=== PATIENT | male | born 1950 | race Caucasian/White ===

== ENCOUNTER 2020-05-17 10:47 | Inpatient (IN) | payer MEDICARE, OTHER ==
[~2020-05-17] VITALS: Ht 177.8 cm; Wt 111.0 kg
[2020-05-17] MEDS ORDERED: VENTOLIN HFA18 GM INH (11:02)
--- NOTE | 2020-05-17 12:48 | EKG ---
[facility] [address] [place], [place] [address] Signed Normal sinus rhythm Left axis deviation Abnormal ECG No previous ECGs available Confirmed by MINA GONZALEZ MD ([id number]) on 05/17/2020 12:48:28 PM Electronically Signed By: MINA GONZALEZ MD 05/17/20 1248 PATIENT NAME: KERVIN KOO Electrocardiogram DATE OF : 52 PHYSICIAN: MINA GOZNALEZ MD REPORT #: [id number] REPORT IS CONFIDENTIAL AND NOT TO BE RELEASED WITHOUT AUTHORIZATION
--- NOTE | 2020-05-17 15:45 | NUR ---
PATIENT ARRIVED TO THE CCU ROOM 126. PATIENT ON 2L NASAL CANNULA AND ABLE TO TRANSFER HIMSELF FROM THE STRETCH TO THE BED. PATIENT DOES REPORT WEAKNESS. PATIENTS VITALS STABLE. THIS RN IN WITH PATIENT TO ADMIT PATIENT.
[2020-05-17] MEDS ORDERED: TERBINAFINE HC250 MG PO (15:50)
--- NOTE | 2020-05-17 16:30 | NUR ---
THIS RN WITH PATIENT ROF PRIOR HOUR. PATIENT ASSESSMENT COMPELTED. UNABLE TO LISTEN TO BREATH SOUNDS D/T WEARING PAPR. PATIENTS RR- 26. SPO2 97% ON 2L NC. PATIENT REPORT HE HAS DIFFICULTIES WITH MOVING AT HOME. PATIENT STATES "I HCAN ONLY WALK ABOUT 100 FT BEFORE MY LEGS GIVE OUT ON ME BECAUSE OF THE NEUROPATHY. PATIENT ALSO REPORTS BEING WEAKER THAN NORMAL. PATIENT ARRIVES WITH HIS PERSONAL CANE. URINAL AT THE BEDSIDE AND PATIENT ABLE TO USE ON HIS OWN. PATIENTS PANTS AND ATTENDS REMOVED FOR PATIENT TO USE URINAL EASIER. PATIENT HAS A CONSTANT IRRITABLE COUGH. GAVE PRN COUGH MEDICINE. PATIENT DENIES ANY OTHER NEEDS AT THIS TIME. WILL CONTINUE TO CLSOELY MONITOR.
--- NOTE | 2020-05-17 18:45 | NUR ---
STAFF IN TO ASSIST PATIENT UP TO [facility]. 2 PERSON TRANSFER D/T PATIENT HAVING WEAKNESS. PATIENT STOOD WITH HIS AND STAFF TO THE [facility] AND TOLERATED WELL. PATIENT DID NOT HAVE A BM. PATIENT BACK TO BED AND TOELRATED WELL. PATIENT NOTED TO HAVE A LITTLE BLOOD ON HIS PENIS. PATIENT STATED "THE URINAL PINCHED IT. NO AREA SEEN WITH ANY ISSUES BUT DRIED BLODO WAS CLEANED UP. FRESH WATER AT THE BEDSIDE. CALL LIGHT IN REACH. WILL CONTINUE TO CLOSELY MONITOR.
--- NOTE | 2020-05-17 19:43 | NUR ---
REPORT RECEIVED FROM PRIYA NERI. PT IS RESTING IN BED WITH EYES CLOSED, RESP EVEN AND UNLABORED. SPO2 94%, RR 20 HR 60'S.
--- NOTE | 2020-05-17 21:15 | NUR ---
IN TO DO ASSESSMENT, PT WAKES EASILY DENIES NEEDS AT THIS TIME.
--- NOTE | 2020-05-17 22:00 | NUR ---
PT CALLS TO GET UP TO THE BSC, HAS A SMALL BM AND VOIDED. BACK TO BED, CALL LIGHT IN HAND, NO REQUESTS AND BED ALARM ON.
--- NOTE | 2020-05-18 00:45 | NUR ---
IN TO CHECK ON PT, DENIES NEEDS, BACK TO SLEEP.
--- NOTE | 2020-05-18 02:00 | NUR ---
PT CONT TO SLEEP WITH O2 IN PLACE, SPO2 98%.
--- NOTE | 2020-05-18 04:40 | NUR ---
PT SLEEPING, RESP EVEN AND UNLABORED, HR 60'S, SPO2 98% ON 2L/O2.
--- NOTE | 2020-05-18 05:25 | NUR ---
PT CALLS FOR ASSISTANCE GETTING UP TO BSC. CALL LIGHT IN HAND, WILL CALL WHEN HE IS DONE.
--- NOTE | 2020-05-18 07:30 | NUR ---
PATIENT SHIFT REPORT RECIEVED FROM TRUSS PULLER HELPER RN. PATIENT RESTING IN BED AT THIS TIME. LATONIA LIGHT IN REACH. PATIENT CALLS APPROPRIATELY. WILL CONTINUE TO CLOSELY MONITOR.
--- NOTE | 2020-05-18 09:30 | NUR ---
THIS RN IN WITH PATIENT TO DO AM ASSESSMENT, MEDICATIONS ,AND DELIEVER BREAKFAST. THIS RN IN THE ROOM FOR APPROX 1 HOUR. UNABLE TO LISTEN TO PATIENTS BREATH SOUNDS, HEART TONES, OR BOWEL TONES D/T TO WEARING PAPR UNIT AT THIS TIME. PATIENTS RR- 20-24 AT TIME. SPO2 98% ON 1L. PATIENT DENIES SOB. PATIENT REPROTS COUGH IS BETTER THAN THE PRIOR DAY. PATIENT DENIES ABD PAIN. PATIENT STATES "I FEEL BETTER ALL IN ALL". OFFERED TO GET PATIENT UP TO CHAIR AND PATIENT DENIED. OFFERED TO GET PATIENT A SHOWER AND PATIENT ALSO DENIED. PATIENT WASHED HIS FACE AND BRUSHED HIS TEETH. PATIENTS URINAL EMPTIED. NO OTHER NEEDS AT THIS TIME. WILL CONTINUE TO CLOSELY MONITOR.
--- NOTE | 2020-05-18 11:30 | NUR ---
PATIENT RESTING IN BED. PATIENTS LUNCH ORDERED. ASSESSMENT COMPLETED AND REMAINS UNCHANGED. MD MA WAS IN TO SEE PATIENT, UPDATED ON PLAN OF CARE. RT IN WITH PATIENT TO INSTRUCT ON USING THE INCENTIVE SPIROMETER AND AQAPELLA. PATIENT IS NOW COMPLETING THEM EVERY 1 HOUR. FRESH WATER PROVIDED. WILL CONTINUE TO CLOSELY MONITOR.
--- NOTE | 2020-05-18 13:00 | NUR ---
PATIENTS FOOD HERE. PATIENT ASSISTED UP IN BED. PATIENT REMAINS ON 1L NC WITH SPO2 96%. PATIENT DENIES AANY OTHER NEEDS AT THIS TIME. PATIENT HAD SOME BELONGIGNS DELIVERED AND THIS RN BROUGHT THESE INTO THE ROOM FOR HIM. ALSO, GAVE PATIENT AN EDUCATION PAPER ON REMDESIVIER PER PATIENTS REQUEST.
[2020-05-18] MEDS ORDERED: TRIAMCINOLONE A15 G1 TOP (13:47)
[2020-05-18] MEDS ORDERED: VITAMIN B-6100 MG PO (14:43)
--- NOTE | 2020-05-18 14:44 | NUR ---
Medications reconciled with pharmacy records and patient interview
--- NOTE | 2020-05-18 18:07 | NUR ---
THIS RN IN WITH PATIENT FOR PAST HOUR. PATIENT VITALS DONE, ASSESSMENT REMAINS UNCHANGED. PATIENT ATE HIS DINENR WITH NO ISSUES. MEDICATIONS GIVEN FOR HIS COUGH. SEE EMAR. PATIENT THEN ASSISTED IN TO THE BATHROOM WITH 1-PERSON STAND-BY ASSIST. PATIENT DID WELL WALKING. PATIENT DOES REPORT MILD SOB WITH ACTIVITY. PATIENT HAS GAINED SOME STRENGTH FROM YESTERDAY. CLEANED PATIENTS BACK SIDE AND PAD ON BED CHANGED. NO OTHER NEEDS AT THIS TIME. WILL CONTINUE TO CLOSELY MONITOR.
--- NOTE | 2020-05-19 00:54 | NUR ---
IN TO CHECK ON PT, AWAKENS BRIEFLY, DENIES NEEDS THEN BACK TO SLEEP. RESP EVEN AND UNLABORED ON WITH RR 20 AND SPO2 94%. HR 50.
--- NOTE | 2020-05-19 03:15 | NUR ---
PT CALLS FOR MORE WATER, ASSESSMENT DONE, NO FURTHER REQUESTS. REMAINS ON 1L/O2 WITH SPO2 96%.
--- NOTE | 2020-05-19 05:15 | NUR ---
PT CALLS TO GET UP AND USE BATHROOM. ASSISTED UP AND THEN BACK TO BED. ASSESSMENT DONE AND LABS DRAWN. TRIED PT ON ROOM AIR THIS TIME AND HE MAINTAINED SPO2 94-98%, WILL LEAVE OXYGEN OFF.
--- NOTE | 2020-05-19 08:00 | NUR ---
ASSESSMENT DONE. PATIENT DENEIS PAIN. HAS OCC HARSH NON-PRODUCTIVE COUGH. TALKED WITH PATIENT ABOUT POC FOR DAY. INDICATES UNDERSTANDING. TOOK BREAKFAST WELL. ROUTINE MEDICATIONS GIVEN.
--- NOTE | 2020-05-19 09:00 | NUR ---
UP TO BR TO VOID AND EXPELL SEMI-FORMED BROWN STOOL. SPONGE BATH GIVEN WHILE UP, THEN BACK TO BED WITH ASSIST. USING CANE WITH AMBULATION. DENEIS INCREASED SHORTNESS OF BREATH WITH EXERTION.
--- NOTE | 2020-05-19 09:50 | NUR ---
DR. MA HERE TO SEE PATIENT.
--- NOTE | 2020-05-19 10:45 | NUR ---
RESTING, DENIES PROBLEMS.
--- NOTE | 2020-05-19 12:30 | NUR ---
ASSESSMENT DONE. NO CHANGES. LUNCH GIVEN. DENIES PAIN.
--- NOTE | 2020-05-19 13:00 | NUR ---
TOOK LUNCH WELL. UP TO BR TO VOID AND EXPELL SOFT BROWN STOOL, AMBULATED TO CHAIR.
--- NOTE | 2020-05-19 14:00 | NUR ---
BACK TO BED WITH ASSIST.
--- NOTE | 2020-05-19 16:30 | NUR ---
ASSESSMENT DONE. DENEIS PROBLEMS.
--- NOTE | 2020-05-19 19:08 | NUR ---
TOOK DINNER WELL. DENIES PROBLEMS. REPORT TO NEXT SHIFT.
--- NOTE | 2020-05-19 20:20 | NUR ---
CALL LIGHT ANSWERED. PT REQUESTS FRESH ICE WATER WHICH IS PROVIDED. VSS. AFTER DEEP BREATHING SPO2 AT 98% OTHERWISE AROUND 89-91% ON RA. PT REPORTS USING INCENTIVE SPIROMETER HOURLY. NO FURTHER NEEDS AT THIS TIME.
--- NOTE | 2020-05-19 21:45 | NUR ---
SPO2 87-90 RA. APPLIED 2L PER NC. SPO2 STAYING AT 93% WITH 2L NC. WILL CONTINUE TO MONITOR.
--- NOTE | 2020-05-19 23:09 | NUR ---
CHECKED ON PT. APPEARS TO BE SLEEPING WITH EVEN UNLABORED BREATHING. SPO2 93% ON 2L NC. NO APPARENT SIGNS OF DISTRESS.
--- NOTE | 2020-05-19 23:58 | NUR ---
IN ROOM FOR VS, ASSESSMENT. PT WAS SLEEPING THIS NURSE ENTERED ROOM. VSS. 2L PER NC SP02 96%
--- NOTE | 2020-05-20 01:53 | NUR ---
pt SLEEPING WITH EVEN UNLABORED BREATHING. 2L NC WITH SPO2 97%. HR BRADYCARDIC WITH RATES 40-50BPM. NO APPARENT SIGNS OF DISTRESS. CALL LIGHT WITHIN REACH
--- NOTE | 2020-05-20 04:16 | NUR ---
CHECKED ON PT. PT CONTINUES TO SLEEP PEACEFULLY. SPO2 96-98% 2L NC. HR DEACON WITH 40-48BPM.
--- NOTE | 2020-05-20 05:21 | NUR ---
ASSESSMENT COMPLETE. LABS DRAWN. PT UP TO TOILET TO HAVE BM. 400ML DARK YELLOW URINE IN URINAL AT BEDSIDE. TITRATE PT TO 1L NC; WILL MONITOR. VSS. PT RETURNED TO BED. CALL LIGHT WITHIN REACH.
--- NOTE | 2020-05-20 07:30 | NUR ---
report recieved. PATIENT IS UP TO BR WITH ASSIST OF SENIOR DATA QUALITY ANALYST. THEN TO CHAIR FOR BREAKFAST.
--- NOTE | 2020-05-20 08:00 | NUR ---
ASSESSMENT DONE. MEDICATIONS GIVEN. READY FOR BREAKFAST. DENIES SHORTNESS OF BREATH.
--- NOTE | 2020-05-20 08:45 | NUR ---
TO BREAKFAST WELL, TO BR TO VOID, PASS FLATUS, THEN TO BED. USING CANE WHEN AMBULATING. PATIENT IS W/O C/O OR R/O.
--- NOTE | 2020-05-20 08:56 | NUR ---
CASH SHORTAGE INVESTIGATOR assisted pt. to bathroom and then to chair. Room picked up. linens changed pt. washed up. no other needs at this time. call light within reach
--- NOTE | 2020-05-20 10:00 | NUR ---
DR. MA HERE TO SEE PATIENT. TRANSFER TO MED-SURG ORDERS RECIEVED. PATIENT IN BED RESTING.
--- NOTE | 2020-05-20 10:44 | NUR ---
Attempted to call pt for assessment. I was unable to contact, called and spoke with and daughter,Henny. Henny states she lives with parents and mom had a heart attack last year and dad has been de clining. Pt has been seeing a neurologist as his legs have been giving g out. They live in a split level home and pt uses all floors. Daughter states he has had issues with his legs for 1 year. He goes up stairs on all 4. She also states he has neuropathy to his shins. They do have hand rails inside and out of the home. Daughter denies other needs, but would like an electric wc. Encouraged to speak with their pcp about this or check with [facility]. Pt plans on dc to home tomorrow, daughter will pick him up. He was released from isolation by the health department today.
--- NOTE | 2020-05-20 10:53 | NUR ---
Discussed with daughter transport to home. She will transport home tomorrow and is aware she will need to pick him up [place] the [place] end of [place] hospital near the ambulance bay. Will clarify times tomorrow.
--- NOTE | 2020-05-20 13:47 | NUR ---
PT IS UNDER PRECAUTIONS, WILL FOLLOW NEEDED
--- NOTE | 2020-05-20 14:10 | NUR ---
ON OXIMETER. CARRIER DRIVER DC'D.
--- NOTE | 2020-05-20 14:51 | NUR ---
Medications reconciled with pharmacy records and patient interview
--- NOTE | 2020-05-20 16:00 | NUR ---
IN BED RESTING. NO CHANGES.
--- NOTE | 2020-05-20 18:01 | NUR ---
sitting up in bed to eat dinner. denies problems.
--- NOTE | 2020-05-20 18:45 | NUR ---
UP TO BR TO PASS FLATUS. BACK TO BED. USES CANE. PATIENT STATES HE HAS HAD 8 FALLS OVER THE LAST 3 MONTHS. O2 AT 1 LITER APPLIED O2 SATS THIS AFTERNOON 88-90.
--- NOTE | 2020-05-20 19:05 | NUR ---
REPORT TO NEXT SHIFT.
--- NOTE | 2020-05-20 19:46 | NUR ---
REPORT RECEIVED FROM YESIKA NERI. PT SITTING UP IN BED, DENIES NEEDS AT THIS TIME.
--- NOTE | 2020-05-20 21:00 | NUR ---
PT RESTING WITH EYES CLOSED, RESP EVEN UNLABORED, SPO2 94% ON ROOM AIR.
--- NOTE | 2020-05-20 22:45 | NUR ---
IN TO DO ASSESSMENT AND CHECK ON PT, DENIES NEEDS, BACK TO SLEEP.
--- NOTE | 2020-05-21 01:55 | NUR ---
PT RESTING WITH EYES CLOSED, RESP EVEN AND UNLABORED. SPO2 98%.
--- NOTE | 2020-05-21 04:40 | NUR ---
IN TO CHECK ON PATIENT, WATER REFRESHED, NO OTHER REQUESTS AT THIS TIME. 92% ON ROOM AIR.
--- NOTE | 2020-05-21 06:00 | NUR ---
IN TO DO ASSESSMENT, PT DENIES PAIN OR SOB. UP TO BR FOR VOID AND BOWEL MOVEMENT WITH STANDBY ASSIST USING CANE. ON ROOM AIR WITH SATS BORDERLINE 89-92%. THEN BACK TO CHAIR WITH CALL LIGHT IN REACH. OXYGEN APPLIED 2L/NC.
--- NOTE | 2020-05-21 07:30 | NUR ---
report recieved. PATIENT SITTING IN CHAIR. DENIES PAIN. ROUTINE MEDICATIONS GIVEN.
--- NOTE | 2020-05-21 09:00 | NUR ---
IN BED RESTING. REMAINS ON O2 AT 1 LITER.
--- NOTE | 2020-05-21 09:41 | NUR ---
TO RA NOW, WILL CONTINUE TO MONITOR O2 SEE PATIENT NEEDS TO GO HOME ON O2.
--- NOTE | 2020-05-21 10:00 | NUR ---
Notified by Patito Sanders, Pt will dc today. O2 qualifier in process. Spoke with pt and he would like his 02 from [facility]. Called [facility] and they can deliver slightly afternoon. Received Rx from for . Will send all when note completed stating pt is i need of 02. Attempted to call daughter to update, but reach message stating "mail box has not been set up yet".
[2020-05-21] MEDS ORDERED: DEXAMETHASONE6 MG PO (10:17)
--- NOTE | 2020-05-21 10:34 | NUR ---
FORM SETTER STEEL PAN FORMS assisted pt. to bathroom then back to bed. pt. washed up, linens changed room picked up. v/s and I&Os done and recorded. No other needs at this time. call light with in reach
--- NOTE | 2020-05-21 11:00 | NUR ---
ASSISTED PATIENT WITH DRESSING. WILL BE DISCHARGED TODAY. AFTER DRESSED, TO CHAIR. DISCHARGE INSTRUCTIONS GIVEN WITH PATIENT UNDERSTANDING.
--- NOTE | 2020-05-21 11:03 | NUR ---
Pt dc summary, rx, 02 qualifier, and face sheet faxed to [facility].
--- NOTE | 2020-05-21 12:00 | NUR ---
Obtained phone number for daughter, Margie, from [facility]. Called and updated [facility] is 10 min from their house with the 02. She states they are home and will accept. [facility] will then deliver transport tank to the hospital. Margie will pick dad up at ambulance entrance when nurse call for transport.
--- NOTE | 2020-05-21 12:04 | NUR ---
PT ON PRECAUTIONS, HAS IMPROVED WELL ENOUGH TO DC HOME TODAY.
--- NOTE | 2020-05-21 12:10 | NUR ---
SITTING UP IN CHAIR EATING LUNCH. NO DISTESS NOTED.
--- NOTE | 2020-05-21 13:12 | NUR ---
TOOK LUNCH WELL, AWATING DISCHARGE RIDE.
--- NOTE | 2020-05-21 13:30 | NUR ---
DISCHARGED VIA W/C ACCOMP BY RN, PATIENT DAUGHTER HERE TO DRIVE PATIENT HOME. PATIENT IS ON O2 AT 2 L UPON DISCHARGE.
== END 2020-05-21 13:30 | disposition home or self-care (01) | DRG 177 ==
LOC: ED 10:47 → CCU 14:16
PROVIDERS: ADMIT Internal Medicine; ATTEND Internal Medicine
PROC: XW033E5 Introduction of Remdesivir Anti-infective into Peripheral Vein, Percutaneous Approach, New Technology Group 5 (ICD-10-PCS; principal; 2020-05-17)
DX: U07.1 COVID-19 (principal); J12.82 Pneumonia due to coronavirus disease 2019; J96.01 Acute respiratory failure with hypoxia; G62.9 Polyneuropathy, unspecified; Z88.5 Allergy status to narcotic agent
CPT/HCPCS: 71045; 71260; 80053; 83735; 83880; 84484; 85025; 85379; 93005; 93010; 94640; 94664; 94667; 94668; 94761; 96374; 99285-25; J1100; J1650; J2060; J7050; J8540; Q9967

== ENCOUNTER 2021-05-07 08:55 | Inpatient (IN) | payer MEDICARE, OTHER ==
[~2021-05-07] VITALS: Ht 177.8 cm; Wt 83.0 kg
[~2021-05-07 08:55] MED LIST: DEXAMETHASONE6 MG PO; IMODIUM A-1 MG/7.5 M PO; TERBINAFINE HC250 MG PO; TRIAMCINOLONE A15 G1 TOP; VENTOLIN HFA18 GM INH; VITAMIN B-6100 MG PO
--- OUTSIDE RECORDS SUMMARY | 2021-05-07 09:02 | XMS ---
PreManage Notification: KERVIN KOO Security Surveyor Rod Helper Events No recent Security Events currently on file CRITERIA MET - [facility] - 2 Visits in 30 Days CARE PROVIDERS LILIAN Cosby JR Orthopaedic Surgery: Hand Surgery Current [facility] PHONE: [phone] Monte[facility] has no Care Guidelines for this patient. [facility] VISIT COUNT (12 MO.) [address] [place] [address] TOTAL 3 NOTE: Visits indicate total known visits. ED/UCC VISIT TRACKING (12 MO.) 05/07/2021 08:55 [facility] [place] TYPE: Emergency COMPLAINT: - DIFFICULTY BREATHING 05/06/2021 18:10 [facility] [place] TYPE: Emergency COMPLAINT: - DEHYDRATION 05/17/2020 10:48 [facility] [place] TYPE: Emergency COMPLAINT: - SHORTNESS OF BREATH INPATIENT VISIT TRACKING (12 MO.) 05/17/2020 14:16 [facility] [place] TYPE: Critical Care COMPLAINT: - COVID/PNA DIAGNOSES: - Acute respiratory failure with hypoxia - Polyneuropathy, unspecified - Allergy status to narcotic agent - COVID-19 [email or web address]
--- NOTE | 2021-05-07 12:46 | NUR ---
PT ARRIVED FROM ER VIA STRECHER, PT HEAD IS DROOPED ON TO THE LEFT , PT AT BEDSIDE AND STATES THAT THIS IS NORMAL AND HE IS SLEEPING VITAL SIGNS DONE ON 4L NC, BASELINE NONVERBAL, HX OF ASL.
--- NOTE | 2021-05-07 13:00 | NUR ---
RN in room going over admission questions with , nurse doing pt assesment attmepted to wake pt up asked if he is always this hard to wake up, states this is not his baseline , pt not following commands, sternal rubbed, does not wake up, dr helton notified, rapid response initiated.
--- NOTE | 2021-05-07 13:03 | NUR ---
Rapid Response called over head at 1303, pt unresponsive to all stimuli. Initial VS at 1305 HR 87 RR 26 BP 167/88 O2 94% on 4L NC. and in room discussing w/ at bedside plan for continued care. At 1308 chest pads from crash cart placed on pt and EKG obtained, SR w/ HR 85. At 1310 two new IVs started, 20g LAC and 18g RAC, Lactic and VBG obtained, per 's order, laboratory equipment installer at bedside to collect. At 1312 RT placed pt on Bipap per , VS as follows HR 79 RR 28 BP159/78 O2 95% on Bipap 12%FiO2 and 6L. Pt remains unresponsive to all stimuli. VS at 1321 HR 88 RR 24 BP 100/66 O2 95% on Bipap 17% FiO2 and 5L. VS at 1326 HR 85 RR 20 BP 79/49 O2 96% on Bipap 17% FiO2 and 5L. At 1327 1L LR Bolus started and 1 amp Bicarb given IVP per . VS at 1330 HR 88 RR 22 BP 84/53 O2 96% on Bipap 16% FiO2 and 4L. VS at 1332 HR 81 RR 18 BP 67/44 O2 97% on Bipap 16% FiO2 and 4L. Rapid response complete at 1340 per , final VS of HR 76 RR 16 BP 69/39 O2 97% on Bipap 16%FiO2 and 4L. Pt's daughter has arrived at bedside, updated by of pt's condition. No further orders or needs a this time, RN assigned to pt remains in w/ pt's and daughter.
--- NOTE | 2021-05-07 13:10 | NUR ---
RAPID RESPONSE, BIANCA Mcbride RN MED/SURG TRAIL MAINTENANCE WORKER, ZAIN MOORE RN ELECTROLYSIST INTO ROOM, OFELIA Dan STUDENT WITH MARLIN MOHR. INTO ROOM. CHRISTIAN NERI PRIMARY RN IN ROOM, DAVID ROD RN RECORDER, [facility], [facility], [facility], JIMMY YOUNGER RN CHARGE. PT'S , AND . ALL IN ROOM FOR RAPID RESPONCE CALL.
--- NOTE | 2021-05-07 14:30 | NUR ---
HALLE GROVES INFORMED ME THAT FAMILY DID NOT WANT MY SERVICES AT THIS TIME. WILL FOLLOW NEEDED
--- NOTE | 2021-05-07 15:15 | NUR ---
RN IN ROOM TO ROUND ON PT, FAMILY TALKING TO COOLER TENDER AT THE MOMENT WILL COME BACK AROUND TO SEE.
--- NOTE | 2021-05-07 15:59 | NUR ---
Spoke pts and daughter. Pt is not responsive and is on CPAP. states pt was diagnosed with ALS recently. Were told pt would have 18 months to live. Pt with rapid decline this week. and pt had planned d on feeding tube placement. Pt was using a walker, wc, ramp and hospita bed at home. is wanting to "wait and see" if pt improves. If pt does not would like to discuss hospice. Daughter in agreement and both state pt does not want intubation or machines to keep heart going. Will follow up with family tomorrow.
--- NOTE | 2021-05-07 16:18 | NUR ---
RN AND DR BRAN IN ROOM WITH PT AND FAMILY
--- NOTE | 2021-05-07 18:34 | NUR ---
rn in room to assess pt, he has not voided since coming up to the floor bladder scan done 186 highest amount, dr helton notified per provider give 500 bolus
--- NOTE | 2021-05-07 19:16 | NUR ---
IN ROOM FOR REPORT, PT IS RESTING WITH EYES CLOSED ON BIPAP. AND DAUGHTER IN THE ROOM. THEY DENY NEEDS AT THIS TIME. CALL LIGHT IS CLOSE.
--- NOTE | 2021-05-07 20:12 | NUR ---
IN ROOM TO ADD 2ND IV PUMP TO ENSURE PT GETS MAINTANACE IV FLUID AND 500ML BOLUS ALONG WITH THE K+. ASSESSED PT, HE OPENS HIS EYES MOMENTARILY AND FALLS BACK ASLEEP. REPOSITIONED PT WITH HELP OF THA NERI AND PT BECAME MORE ALERT KEEPING HIS EYES OPENED LONGER. HIS IS AT BEDSIDE AND USING HIS WHITEBOARD TO COMMUNICATE WITH HER.
--- NOTE | 2021-05-07 21:41 | NUR ---
PATIENT PLACED ON BED BACA. PATIENT WAS ABLE TO HAVE SMALL BM. PATIENT REPOSITIONED IN BED. PATIENT IS ON 5L VIA NC. PATIENT DENIES ANY SOB. PATIENT PLACED ON CPOX ON TELE. SPOKE WITH MD ABOUT PATIENT BEING AWAKE AND ALERT. VERBAL ORDER RECEIVED TO COMPLETED SWALLOW EVAL AND TO HAVE PATIENT WEAR BIPAP MUCH POSSIBLE. SWALLOW EVAL COMPLETED. PATIENTS FAMILY PRESENT IN THE ROOM AND STATED "PATIENT IS SWALLOWING BETTER THAN HE HAS BEEN FOR 3 DAYS". PATIENT PASSED SWALLOW EVAL. PATIENT DENIES ANY SOB. BLOOD DRAWN AND SENT TO LAB. PATIENTS REMAINS IN THE ROOM. ALL QUESTIONS ANSWERED. PATIENT AND FAMILY DENY ANY FURTHER NEEDS. CALL LIGHT IN REACH.
--- NOTE | 2021-05-07 21:47 | NUR ---
PT PASSED BEDSIDE SWALLOW EVAL AND IS ON 5LNC. PROVIDED APPLESAUCE AND ENSURE PER PT'S REQUEST. IS ASSISTING PT AT THIS TIME. CALL LIGHT IS CLOSE.
--- NOTE | 2021-05-07 22:21 | NUR ---
PT STOPPED BY NURSES STATIONS, THA RN, STATED THAT PT WANTS TO BE INTUBATED, AND HAVE A TRACH IS NEEDED. PT ON BIPAP PER RT, SATS AT 100 CURRENTLY. IS LEAVING FOR THE NIGHT. DR BRAN AWARE OF PT CHANGE OF CODE STATUS, ORDERS RECEIVED. WANTS PT TO WEAR THE BIPAP MUCH HE CAN TONIGHT.
--- NOTE | 2021-05-07 23:04 | NUR ---
IN ROOM TO CHECK ON PT. HE WAS FINISHED USING THE URINAL PT TOLD SANDWICH BOARD CARRIERHALLE DODGE THAT HE HAD HEADACHE. OFFERED TYLENOL AND PT SHOOK HIS HEAD NO. READJUSTED BIPAP MASK AND LOOSENED STRAP ACROSS TOP OF HIS HEAD AND PT NODDED YE WHEN ASKED IF IT WAS BETTER. PT IS NOW RESTING WITH EYES CLOSED, RR IS EVEN AND UNLABORED. CALL LIGHT IS CLOSE, BED ALARM IS ON.
--- NOTE | 2021-05-08 00:40 | NUR ---
PT IS RESTING WITH EYES CLOSED, RR IS EVEN AND UNLABORED ON BIPAP. CALL LIGHT IS CLOSE AND BED ALARM IS ON.
--- NOTE | 2021-05-08 01:34 | NUR ---
VS AND I&O'S ENTERED, CHANGED PT'S PAD FOR SOME URINE INCONTINECE. PT OPENED EYES WHILE THIS RN IN THE ROOM BUT WENT BACK TO SLEEP. REPOSITIONED PT WITH PILLOW UNDER R HIP. CALL LIGHT IS CLOSE AND BED ALARM IS ON.
--- NOTE | 2021-05-08 03:29 | NUR ---
REPOSITIONED PT THEN HE NEEDED TP HAVE A BM, HE HAD A LITTLE INCONTINENT BM IN ATTENDS AND WENT A LITTLE MORE IN BEDPAN. ATTENDS HAD A LITTE URINE IN THEM AND PT HAD ALSO JUST USED URNINAL. PT IS NOW FLOATED WITH PILLOWS UNDER EA HIP WITH HOB ELEVATED, BIPAP IN PLACE AND PT DENIES FURTHER NEEDS. CALL LIGHT IS CLOSE, BED ALARM IS ON.
--- NOTE | 2021-05-08 03:59 | NUR ---
PT'S IV PUMP WAS BEEPING, NEW BAG OF LR NOW INFUSING. PT DID NOT WANT TO WEAR BIPAP ANYLONGER. HE IS BACK ON 5LNC. PT WANTED TO BE REPOSITIONED. PT NOW HAS PILLOWS UNDER HIS LEFT SIDE. HEEL PROTECTORS STILL IN PLACE AND PT DENIES FURTHER NEEDS. CALL LIGHT IS CLOSE, BED ALARM IS ON.
--- NOTE | 2021-05-08 06:00 | NUR ---
PT WANTED A BREAK FROM THE BIPAP AGAIN. REPOSITIONED PT WITH PILLOWS UNDER HIS R SIDE. HE DENIES FURTHER NEEDS AT THIS TIME. CALL LIGHT IS CLOSE.
--- NOTE | 2021-05-08 07:10 | NUR ---
REPORT RECIEVED FROM RECREATIONAL ASSISTANT RN, PT DOING ALOT BETTER M, WORE BIPAP AT 50% FIO2 MOST ON THE NIGHT CURRENTLY SLEEPING ON TELE #3, SINUS RHYTHM, CPOC ON, CALL LIGHT WITHIN REACH.
--- NOTE | 2021-05-08 08:00 | NUR ---
RN IN ROOM TO CHANGE TELE BATTERY, PT AWAKE REQUESTING TO TAKE BIPAP OFF. PLACED ON 4L NC 98% ON PULSE OXIMETER RESPIRATIONS REGULAR AND UNLABORED, REQUESTING TO USE THE BEDPAN.
--- NOTE | 2021-05-08 08:00 | NUR ---
PHONE CALL FORM pt'S DAUGHTER, UPDATED ON STATUS. UPDATED THAT VISITORS BACK PER POLICY. QUESTIONS ANSWERED.
--- NOTE | 2021-05-08 08:30 | NUR ---
Pt.'s oral care was done. His gums bled upon brushing with regular hospital toothbrush, so switched to oral care swabs and suctioned as needed to prevent aspiration as well. His face and hands were cleaned with washcloth. Lip chapstick and hand lotion was applied on pt. Checked if patient needed anything else prior to leaving his room with call light within reach and bed at its lowest height.
[2021-05-08] MEDS ORDERED: VITAMIN D21250 MCG PO (08:36)
[2021-05-08] MEDS ORDERED: POTASSIUM CHLO10 ME1 PO (08:36)
[2021-05-08] MEDS ORDERED: FUROSEMIDE20 MG PO (08:36)
[2021-05-08] MEDS ORDERED: TERBINAFINE HC250 MG PO (08:37)
--- NOTE | 2021-05-08 09:11 | NUR ---
PT.'S DUE LOVENOX INJECTION WAS GIVEN FOR WHICH HE COMPLIED WITH AND TOLDERATED WELL. PT. ED ON MEDICATION WAS GIVEN. MADE SURE SAFETY MEASURES WERE IN PLACE AND PT.'S OTHER NEEDS WERE MET BEFORE LEAVING ROOM.
--- NOTE | 2021-05-08 09:30 | NUR ---
Pt discussed in 829 meeting and feels pt will need a noninvasive vent for home use. Called [facility] and ALS, Resp failure, neuromuscular disease all qualify. Dr. Day will complete notes and RX. Previous charts, labs, H&P, face sheet printed and will fax to [facility] when all documentation is completed. [facility] also suggest pt may benefit from an Aflo percussion vest as he has had pneumonia in the past. In and spoke with pt. His circuit manager is in the room. I am not able to understand pts speech, but he is able to communicate with a white board and writing. Discussed Neymar vent and an aflo vest. Discussed resp failure. Pt understands, agrees to a noninvasive vent. He does not want an aflo percussion vest at this time. Denies other needs. is home resting and I will follow up with her, when she returns to the hospital.
--- NOTE | 2021-05-08 09:37 | NUR ---
PT. HAD A VISITOR (HIS [employer] COUNSEL[employer]) AND HE SEEMED TO REALLY ENJOY THE COMPANY WE WAS ALERT AND INTERACTIVE DURING VISIT. OTHER THAN SO, HIS KCL 40 MEQ AND LIDOCAINE 40 MG IN D5 500 ML WAS STARTRED AT 131 ML/HR. LEFT PT. WITH VISITOR AFTER CHECKING IF HE NEEDED ANYTHING ELSE. HIS CALL LIGHT PLACED WITHIN RECH AND BED AT ITS LOWEST HEIGHT.
--- NOTE | 2021-05-08 10:28 | NUR ---
pt REPOSITIONED WITH 2PA, pt FLOATING WITH PILLOWS UNDER EACH HIP. HEEL PROTECTORS ON. STUDENT NURSE REMAINS IN ROOM WITH pt. pt DENIES ADDITIONAL NEEDS.
--- NOTE | 2021-05-08 11:20 | NUR ---
PT. CALLED AND WAS CHECKED UP ON. PT. NEEDED AND WAS GIVEN BED PEN. HE ALSO COMPLAINED OF LIGHTHEADEDNESS (POINTED OUT OPTION ON HIS COMMUNICATION POTTS SHEET). FOR THAT, HIS SPO2 (92%-93%), BP (153/83), AND MAP (94) WAS CHECKED. HE WAS THEN WITCHED FROM NASAL CANULA TO BIPAP. HE WASN'T ABLE TO HAVE A BM, BUT HE VOIDED 200 ML CLEAR JOSE. ANOTHER L OF LR WAS HOOKED UP. HE'S UPRIGHT IN BED WITH SUPPORT OF BED AND IS CURRENTLY CLOSING HIS EYES AND JUST FOCUSING ON BREATHING. ENSURED THAT HIS CALL LIGHT WAS WITHIN REACH, TELE WAS ON AND HIS BED WAS AT ITS LOWEST HEIGHT. HIS COMPRESSION SOCKS AND PADS IN PLACE.
--- NOTE | 2021-05-08 11:33 | NUR ---
pt complaining of being lightheaded, vitals signs on pt done, bp 153/74 map of 94, heart rate of 80, pulse oximeter 98, denies pain, repositoned up in bed denies any other needs at the moment, call light within reach
--- NOTE | 2021-05-08 11:58 | NUR ---
PT CALLED OUT REQUESTING TO BE REPOSTIONED, TURNED ON L SIDE
--- NOTE | 2021-05-08 13:05 | NUR ---
PT AT BEDSIDE, UPDATED ON PTS STATUS.
--- NOTE | 2021-05-08 13:26 | NUR ---
FAMILY REQUESTED I NOT VISIT. THEIR [employer]CIAL [employer] VICE PRESIDENT WAS IN, INFORMED HALLE GONZALES TO SHARE WITH FAMILY I AM AVAILABLE IF NEEDED. SHE ACKNOWLEDGED
--- NOTE | 2021-05-08 13:38 | NUR ---
RN IN ROOM TO CHNAGE IV FLUID RATE
--- NOTE | 2021-05-08 13:47 | NUR ---
PT'S PRESENT IN ROOM. SHE EXPRESSED HER GRATITUDE TOWARDS THE STAFF'S VALUBALE WORK ESPECIALLY IN HELPING OUT WITH PT. PT STILL ON BIPAP RUNNING AT 50% AND HIS SPO2 WAS AT AT 98% WHEN CHECKED VIA PULSE OXIMETRY. ANOTHER KCL 40 MEQ+LIDOCAINE 40 MG IN D5% 500 ML WAS HOOKED UP AND RUNNING AT 131 ML/HR.
--- NOTE | 2021-05-08 14:01 | NUR ---
Faxed face sheet, Rx, progress note, H&P, ABGs, Chest xray to [facility] to request noninvasive vent for this pt.
--- NOTE | 2021-05-08 14:20 | NUR ---
PT ALERT AND ORIENTED BUT IS EXPERIENCING FATIGUE DUE TO DIFFICULTY BREATHING AND OXYGENATING. HOWEVER, HE WAS ABLE TO RESPOND AND FOLLOW COMMANDS DURING HEAD TO TOE ASSESSMENT. HIS BRIEF STILL DRY AND NO BM YET. AND PT STATED NOT NEEDING ANYMORE HELP, SO SN LEFT ROOM AND REMINDED THEM OF THE CALL LIGHT NEXT TO PATIENT AND MADE SURE BED WAS AT ITS LOWEST.
--- NOTE | 2021-05-08 15:00 | NUR ---
rn in room to check on pt, pt sleeping, currently on bipap, at bedside, no needs at the moment
--- NOTE | 2021-05-08 16:20 | NUR ---
PT. STILL ON BIPAP AT 50%. HEAD OF BED STILL ELEVATED AND PATIENT ASLEEP. ASSESSMENT DONE AND CHARTED. PRESENT IN ROOM. CALL LIGHT AVAILABLE AND WITHIN REACH, BED AT LOWEST POINT AND MADE SURE TO ASK IF FURTHER HELP WAS NEEDED BEFORE LEAVING.
--- NOTE | 2021-05-08 16:51 | NUR ---
Notified by Ammy at [facility], noninvasive vent is approved. However, their RT is ill and cannot set up. They are unable to provide another PT at this time. Options are fo the pt to drive to [email or web address] for set or to wait until their Rt is available on 05/20/21. Informed neither of those options work. I will contact [facility]. Ammy apologized and I let her know its ok it just how it is now with the pandemic. Called and spoke with Joce YUSUF from [facility] in [place] and he states he feels they can get this auth by tomorrow. They have two RTs available and can set up. I called and spoke with Dr. Day and he states pt will stay through Wednesday for feeding tube placement. Called Joce and updated pt will be here through Wednesday. He states he would prefer to set up the Trilogy tomorrow.
--- NOTE | 2021-05-08 17:30 | NUR ---
PT AWAKE AND HELPED WITH POSITIONING PER HIS REQUEST. HE ALSO WANTED TO SWITCH FROM BIPAP TO NASAL CANULA. RN NOTIFIED AND IT WAS DONE. HE NODDED WHEN ASKED IF HE WAS FEELING BETTER. HE DENIED HAVING ANY SHORTNESS OF BREATH OR CHEST PAIN. CURRENTLY ON 5L NC. HIS SPO2 READ AT 94%. LEFT PT WITH HIS CALL LIGHT WITHIN RAECH AND BED AT LOWEST HEIGHT. GIVEN ORAL SWABS TO HELP MOISTEN MOUTH.
--- NOTE | 2021-05-08 17:37 | NUR ---
pt requesting a break from his bipap, placed on 3L nc, denies any chest pain or sob, remains at bedside, repostioned on to L side per request, mouth swabs provided, no other needs at the moment
--- NOTE | 2021-05-08 18:15 | NUR ---
RN IN ROOM TO HELP PT REPOSITION ON TO THE LEFT SIDE
--- NOTE | 2021-05-08 19:41 | NUR ---
BEDSIDE REPORT, PT FAMILY AT BEDSIDE. PT ALERT AND COMMUNICATING WITH WHITE BOARD AND MARKER ALSO ABLE TO VERBALIZE TO FAMILIES UNDERSTANDING. FAMILY REPORTS THAT HE HAS HAD DISCOMFORT TO HIS BOTTOM, HIS BROUGHT IN HIS PERSONAL GEL PAD THAT HE SITS ON AT HOME. HE ALSO HAS HAD A BM WHILE THIS RN IN ROOM, ANGELA SAMAYOA AND ROB RN INTO ROOM TO ASSIST WITH CHANGING. FAMILY PLANS TO LEAVE TO GO HOME FOR THE NIGHT.
--- NOTE | 2021-05-08 20:01 | NUR ---
IN ROOM TO CHANGE PT'S ATTENDS AND REPOSITION PT IN BED. HE HAS THE GEL PAD UNDER HIS BOTTOM AND HIPS FLOATED ON PILLOWS. PT IS NOW RESTING WITH EYES CLOSED, RR IS EVEN AND UNLABORED ON BIPAP. CALL LIGHT IS CLOSE AND IS IN ROOM.
--- NOTE | 2021-05-08 20:06 | NUR ---
IS LEAVING FOR THE NIGHT, SHE ASKED FOR TIME FRAMES FOR FEEDING TUBE PLACEMENT. LET HER KNOW THAT DR NORIEGA WOULD BE ABLE TO ANSWER THAT QUESTION BETTER AND IT DEPENDS ON HOW THE SURGERY GOES. PT IS HEADED HOME NOW. IS APPRECITIVE OF OUR CARES.
--- NOTE | 2021-05-08 21:18 | NUR ---
PT TURNED AND REPOSITIONED WITH LEGS ELEVATED. HE GAVE A THUMBS UP THAT HE IS NOW COMFORTABLE. HE CALLED TO REQUEST A WARM BLANKET WELL.
--- NOTE | 2021-05-08 22:32 | NUR ---
ROUNDED ON PT, HE REPORTED THAT HE HAD POOPED, HE ALSO SAID HE NEEDED TO PEE, PT PROVIDED URINAL THEN ASKED FOR US TO LEAVE FOR A FEW MINUTES, HE WAS ABLE TO VOID 200ML CLEAR YELLOW URINE. HE HAD SMALL SMEAR BM. PT CLEANED REPOSTIONED, TO PT SATIFACTION. NO OTHER NEEDS AT THIS TIME, BIPAP REMOVED WHILE HE DID PT CARE 4L N.C. PLACED. BIPAP PLACED WHEN FINISHED.
--- NOTE | 2021-05-08 23:57 | NUR ---
ROUNDING, PT SLEEPING, BIPAP ON, 100% OXYGEN SATURATION PER TELEMETRY. HEART RATE 49 BPM. NO DISTRESS NOTED AT THIS TIME.
--- NOTE | 2021-05-09 02:20 | NUR ---
ROUNDED ON PT, HE IS SLEEPING WITH BIPAP ON, RR EVEN, 100% ON PULSE OXIMETRY. NO DISTRESS NOTED
--- NOTE | 2021-05-09 04:27 | NUR ---
PT CALLED TO REQUEST VOID IN URINAL, ATTENDS CHANGED FOR SMALL BM, PT -REPOSITIONED. NO OTHER CONCERNS AT THIS TIME
--- NOTE | 2021-05-09 05:08 | NUR ---
PT RESTING IN BED BIPAP ON, NO DISTRESS NOTED, EYES CLOSED, REGULAR RR 18 BPM. 100% PER CONTINUOUS PULSE OXIMETRY.
--- NOTE | 2021-05-09 05:42 | NUR ---
PT HAS HAD TWO BM THIS SHIFT, HE HAS COMMUNICATED BOTH WITH WHITE BOARD WRITING AND VERBALLY, HE IS ABLE TO ASSIST IN TURNING IN BED. HE HAS NOT REPORTED PAIN IN GENERAL, HE HAS REPORTED BOTTOM HURTING, REPOSITIONED REGUALR HE HAS RED AREA ON COCCXY BLANCHABLE. HE HAS GEL PAD UNDER BOTTOM FROM HOME AND PILLOWS TO OFF SET WEIGHT WHEN REPOSITIONING. HE HAS BEEN URINATING IN URINAL VOIDING QUANTITY SUFFICIENT. HAS REMAINED ON BIPAP MOST OF SHIFT, TAKING OFF FOR REPOSITIONING PLACED ON N.C. AT THOSE TIME, THEN BACK TO BIPAP WHEN SETTLED. REMAINED 99-100% OVERNIGHT OXYGEN SATURATIONS.
--- NOTE | 2021-05-09 06:48 | NUR ---
PT CALLED TO HAVE BIPAP OFF FOR A BIT. NC IS BACK ON AT THIS TIME. PT DENIES FURTHER NEEDS. CALL LIGHT IS CLOSE.
--- NOTE | 2021-05-09 06:55 | NUR ---
IN TO ASSIST PT WITH HIS PILLOW, NEEDED TO USE THE URINAL, VOIDED, NO FURTHER NEEDS AT THIS TIME
--- NOTE | 2021-05-09 07:20 | NUR ---
REPORT RECEIVED FROM HALLE STERLING. pt RESTING IN BED. WHITE BOARD USED AT THIS TIME FOR COMMUNICATION WITH pt. pt STATES "IT HELPS" IN REGARDS TO GEL PAD SITTING ON. 4L OXYGEN BY NC IN PLACE. pt FLOATING WITH PILLOWS UNDER HIPS. HEEL PROTECTORS ON. IVF INFUSING WNL ORDERED.
--- NOTE | 2021-05-09 07:33 | NUR ---
PT CALLED. NEEDED BEDPAN. HE WAS ABLE TO PASS A BM, BROWN LIQUID. ASSISTED HIM TO CHANGE POSITINING. GAVE HIM A PARTIAL BED BATH AND CHANGED HIS GOWN. ORAL CARE DONE. LEFT PT IN ROOM HE CONTINUED LISTENING TO HIS CHRISIAN MUSIC. HIS CALL LIGHT WITHIN REACH AND BED AT ITS LOWEST HEIGHT.
--- NOTE | 2021-05-09 07:33 | NUR ---
PT'S LIQUID BM WAS NOT MEASURED MOST OF IT WSA SPILLED ON PT'S UNDERPAD.
--- NOTE | 2021-05-09 08:15 | NUR ---
pt RESTING IN BED. CHANGED BY SN AND ARNP AFTER BM. TELE IN PLACE. SPO2 94% WITH 4L OXYGEN BY NC IN PLACE. ASSESSMENT COMPLETE. CRACKLES AUSCULTATED IN LLL. LUNG SOUNDS DIMINISHED IN RLL. TELE IN PLACE, HR 72. FACE WASHED WITH WARM CLOTH. RT IN ROOM ASSESSING pt. SCHEDULED MEDICATION ADMINISTERED. pt IS ALERT AND ORIENTED TO ALL. WHITE BOARD UTILIZED FOR COMMUNICATION. HEEL PROTECTORS ON. ASSISTED pt TO RESPOSITION. PILLOWS UNDER HIPS, SHOULDERS, HEEL PROTECTORS ON.
--- NOTE | 2021-05-09 08:25 | NUR ---
PT CALLED FOR HELP. ASSISTED HIM IN ADJUSTING HIS BLANKET. OTHER THAN THAT, NOTHING ELSE WAS NEEDED BY HIM. HE'S STILL ENJOYING HIS MUSIC AND ALL SAFETY MEASURES IN PLACE FOR HIM.
--- NOTE | 2021-05-09 08:38 | NUR ---
PT CALLED. WHEN ASKED, HE WROTE DOWN THAT HE WAS "FEELING LUMBY" AROUND HIS NECK AND HEAD AREA. WE ADJUSTED HIS PILLOW, HEAD OF BED AND UNDERPADS.
--- NOTE | 2021-05-09 08:46 | NUR ---
I WAS ABOUT TO LEAVE PT ROOM, HE COMPLAINED OF NOT FEELING TOO GOOD. WHEN ASKED IF HE WANTED THE BIPAP ON, HE NODDED. WHEN CHECKED, HIS SPO2 WAS 95%, P- 63, BP- 146/88, MAP- 103, T- 97.4. RN NOTIFIED AND REMAINED IN ROOM WITH PT.
--- NOTE | 2021-05-09 08:50 | NUR ---
RN PLACED BIPAP BACK ON FOR PATIENT AND HE'S CURRENTLY JUST RESTING IN BED. HIS SPO2 HAS BUMPED BACK UP TO 99% WITH BIPAP USE. LEFT HIS ROOM WITH HIS CALL LIGHT NEAR HIM AND BED AT ITS LOWEST HEIGHT.
--- NOTE | 2021-05-09 08:55 | NUR ---
CALL LIGHT ANSWERED. BIPAP CLEANED AND APPLIED TO pt AT THIS TIME. CALL LIGHT WITHIN REACH. pt ASSISTED TO REPOSITION HOB HIGHER.
--- NOTE | 2021-05-09 10:05 | NUR ---
CHECKED UP ON PT. LAB PRESENT IN ROOM COLLECTING SAMPLES FOR ABG AND BMP STUDIES. HE WAS ASSISTED WITH REPOSITIONING. VITAL SIGNS CHECKED AND CHARTED. STILL ON BIPAP AT 50% AND READY TO GO BACK TO HIS NAP. HIS CALL LIGHT WITHIN REACH AND BED AT LOWEST LEVEL.
--- NOTE | 2021-05-09 10:41 | NUR ---
CHECKED ON pt. RESTING IN BED WITH EYES CLOSED. BIPAP ON. SPO2 100%.
--- NOTE | 2021-05-09 11:06 | NUR ---
CALL LIGHT ANSWERED. pt INCONTINENT OF SMEAR OF STOOL. ATTENDS CHANGED. pt REPOSITIONED HIGHER IN BED WITH 2PA, PILLOWS UNDER LEFT HIP, LEFT SHOULDER, RIGHT HIP. HEEL PROTECTORS ON. 4L OXYGEN BY KS APPLIED. NOW IN ROOM. NO ADDITIONAL REQUESTS.
--- NOTE | 2021-05-09 11:13 | NUR ---
PTS' FAMILY HAS REQUESTED NO SPIRITUAL CARE AT THIS TIME. WILL FOLLOW
--- NOTE | 2021-05-09 11:27 | NUR ---
PT. NEEDED REPOSITIONING DONE. ENSURED HE WAS COMFORTABLE BEFORE LEAVING ROOM. PRESENT IN ROOM. REMINDED THEM OF CALL LIGHT AND MADE SURE THAT HIS BED WAS LOWERED.
--- NOTE | 2021-05-09 12:28 | NUR ---
PT HOYERED FROM BED TO CHAIR WITH 4PA. pt TOLERATED WELL. BIPAP APPLIED AT THIS TIME. IN ROOM. SN ESPERANZA AT BEDSIDE CHANGING LINENS.
--- NOTE | 2021-05-09 13:20 | NUR ---
MDS IN pt ROOM ASSESSING pt. DISCUSSING PLAN OF CARE. LISHA LYNN ALSO IN ROOM. pt REMOVED FROM BIPAP AT THIS TIME. 4L OXYGEN BY NC IN PLACE. CALL LIGHT IN REACH. IN ROOM. XRAY ALSO IN ROOM.
--- NOTE | 2021-05-09 14:55 | NUR ---
CALL LIGHT ANSWERED. 4PA TO KALEB pt TO HOSPITAL BED. PILLOWS UNDER pt HIPS BILATERALLY, GEL PILLOW UNDER COCCYX. HEEL PROTECTORS ON. FAMILY IN ROOM. NORCO IN ROOM WITH TRILOGY MACHINE.
--- NOTE | 2021-05-09 17:04 | NUR ---
pt DISCUSSING PLAN OF CARE WITH DAUGHTER, AND DR. NORIEGA. pt NOW STATING HE DOES NOT WANT ANY TUBES RIGHT NOW, THAT HE WANTS TO GO HOME. pt REQUESTING TO EAT. ALSO REQUESTS TO SEE MD AND CHANGE POLST FORM TO DNR/DNI. DR. GONZALEZ NOTIFIED. pt AND FAMILY CONCERNED WITH SUPPLIES FOR DISCHARGE. LISHA LYNN UPDATED THAT THEY DO NOT HAVE SUCTION, OXYGEN, KALEB LIFT AT HOME. pt SITTING UP IN BED. DAUGHTER IN ROOM.
--- NOTE | 2021-05-09 17:22 | NUR ---
BIPAP APPLIED TO pt. DAUGHTER AT BEDSIDE. SCDS ON. CALL LIGHT IN LAP.
--- NOTE | 2021-05-09 17:50 | NUR ---
PT WAS NAPPING. IN TO GET VS. DAUGHTER IN ROOM. CALL LIGHT WITHIN REACH NO FURTHER NEEDS. HALLE HAYNES IN ROOM
--- NOTE | 2021-05-09 19:09 | NUR ---
UPDATED POLST FORM ON CHART. pt NOW ON 4L OXYGEN BY NEIDA. AT BEDSIDE REQUESTS pt TRIAL THE TRILOGY MACHINE TONIGHT. RT NOTIFIED. pt REFUSES REPOSITIONING. LEGS ADJUSTED REQUESTED. CALL LIGHT IN REACH.
--- NOTE | 2021-05-09 19:58 | NUR ---
BEDSIDE REPORT FROM DALLAS NERI, PT RESTING IN BED ON 4L N.C. 100% OXYGEN SATURATION. AT BEDSIDE. AMADOR Bocanegra SETTING UP TRILOGY MACHINE AT BEDSIDE.
--- NOTE | 2021-05-09 21:24 | NUR ---
PT REPOSTIONED IN BED, HAS TRILOGY ON, NO OXYGEN BLED IN, 95% OXYGEN SATURATION. PT REPORTS HE IS COMFORTABLE AND HAS NO OTHER NEEDS AT THIS TIME.
--- NOTE | 2021-05-09 21:30 | NUR ---
IN TO GET VITALS, URINAL EMPTIED
--- NOTE | 2021-05-09 22:59 | NUR ---
DAUGHTER NATHALIA CALLED TO GET UPDATE, SHE VERBALIZED THAT THE WAS UPSET AND CONCERNED ABOUT THE R.T. AND THE NEW MACHINE SETTINGS.
--- NOTE | 2021-05-09 23:14 | NUR ---
PT CALLED TO BE REPOSITIONED, HE ASKED TO HAVE TRILOGY MASK OFF FOR 30 MIN TO WATCH TV, 2L N.C. PLACED AT THIS TIME.
--- NOTE | 2021-05-09 23:20 | NUR ---
PT ASSISTED WITH THE URINAL, NO FURTHER NEEDS
--- NOTE | 2021-05-09 23:39 | NUR ---
PT REPOSITIONED AT THIS TIME, ROUNDING, HE IS OXYGEN SATURATION 96% ON 2L N.C. AT THIS TIME. HE HAS FOUND MOVIE ON TV THAT HE IS EXCITED TO WATCH
--- NOTE | 2021-05-09 23:39 | NUR ---
IN TO ASSIST PT WITH POSITIONING, FLOATED AT THE HIPS, PT WANTS TO WATCH MORE TV, CONTENT AT THIS TIME
--- NOTE | 2021-05-10 00:40 | NUR ---
PT READY FOR TRILLOGY MASK, BLANKET PULLED UP
--- NOTE | 2021-05-10 03:42 | NUR ---
PT HAS SLEPT WELL OVER SHIFT, REPOSITIONED Q2 HOURS AND PRN, PT PERSONAL GEL CUSHION UNDER COCCYX WELL PILLOWS FLOATED UNDER HIPS. HE HAS HAD TRILOGY MACHINE ON OVER SHIFT, WHILE AWAKEDID NOT NEED OXYGEN BLED IN, ONCE SLEEPING WELL HE DID DESATURATE TO 97-88%, BLED IN 2L TO TRILOGY MACHINE OXYGEN SATURATION 96% PER OXIMETRY CONTINUOUS. HE HAS VOIDED Q.S. IN URINAL, NO INCONT. NO BM. NO REPORT OF PAIN. NO NEW ISSUES OVER SHIFT.
--- NOTE | 2021-05-10 05:02 | NUR ---
PT CALLED FOR REPOSITIONING. HE WANTS TO HAVE A BREAK FROM ICRTec MACHINE, 2L N.C. ON 95% OXYGEN SATURATION AT THIS TIME.
--- NOTE | 2021-05-10 06:05 | NUR ---
PT BACK ON WITH TRILLOGY MASK PER PT REQUEST
--- NOTE | 2021-05-10 08:24 | CONS ---
[facility] [address] [place], [place] [address] Signed DATE OF CONSULTATION: 05/09/2021 CHIEF COMPLAINT: Teresita Gehrig disease. HISTORY OF PRESENT ILLNESS: Joseph is a 70-year-old gentleman, who apparently has been diagnosed with amyotrophic lateral sclerosis. Unfortunately, he was having some diarrhea and got dehydrated recently and had been in the emergency room twice. He had been admitted to the Internal Medicine Service. He was in significant respiratory failure and not expected to live. Amazingly, on BiPAP, he blew off the CO2 and he is now awake and interactive with his family. I have been in and out of the room, talking to the patient and his and his daughter all day and between all my other surgeries and so forth. They have been working with a neurologist over the [facility]. He was referred to an Ear, Nose, and Throat surgeon and a supervisor benzene refining for consideration of a tracheostomy and a PEG tube back in February 2021. Because of the COVID pandemic and the weather apparently no one ever followed through on that. He is now here and doing generally well on BiPAP. Of course, with his Teresita Gehrig disease, he is not able to swallow particularly well. Nevertheless, he has made it very clear that he would like to go home and try to eat as he has been doing. I have been asked to see him for consideration of PEG tube placement. PAST MEDICAL HISTORY: Amyotrophic lateral sclerosis, BiPAP, essentially a nonverbal, COVID, lower extremity neuropathy. PAST SURGICAL HISTORY: Includes testicle surgery at age 5. SOCIAL HISTORY: He is DNR/DNI. He is and he is bed-bound. He is practically nonverbal. Dr. Curtis Leach is his primary care provider. His neurologist is in the [facility]. FAMILY HISTORY: None. REVIEW OF SYSTEMS: None. ALLERGIES: Codeine. MEDICATIONS: Electronically Signed By: MOLLY NORIEGA MD 05/10/21 0824 PATIENT NAME: JOSEPH KOO CONSULTATION DATE OF : 52 REPORT #: [id number] PHYSICIAN: MOLLY NORIEGA MD PCP: Aayush LEACH DO REPORT IS CONFIDENTIAL AND NOT TO BE RELEASED WITHOUT AUTHORIZATION [facility] [address] [place] [id number] Signed Imodium as needed, but he has discontinued his dexamethasone, , triamcinolone and paroxetine. PHYSICAL EXAMINATION: VITAL SIGNS: Blood pressure 124/68, heart rate is 55, respiratory rate 17, temperature is 97.4. He is 100% on the BiPAP. He is 5 feet 10 inches and 83 kg. GENERAL: Joseph is a 70-year-old elderly male gentleman with very little muscle tone. He can barely write on a tablet. Everything he can do to bring his head up to look around the room. He requires his BiPAP mask. ABDOMEN: Moderately protuberant. His and daughter have been in the room along with our nurse. LABORATORY DATA: His white blood count 10.8, hemoglobin 15, platelets are down to 75,000. His potassium is 3.1. His BUN is 8, creatinine is 0.35, glucose 83. The COVID is negative. ASSESSMENT AND PLAN: Joseph is a 70-year-old gentleman, who presents with rather significant Teresita Gehrig disease. He amazingly live through this episode the other night with the help of the BiPAP. Although nearly nonverbal, he is able to communicate with his and daughter. He has made it very clear he would like to go home maybe with the BiPAP machine and try to eat. It is not clear if he is particularly interested in a tracheostomy or a feeding tube. Certainly, those could be done, although it is rare we do tracheostomies at our hospital. In fact, we have done one probably in the last 20 years. There is consideration that he would maintain his followup with his physicians over in the [facility] if he wants to pursue that route. At this point, it is Wednesday afternoon and there is certainly no venegas. I think the family is going to have continued discussion. I will be here to support his decision. Molly Noriega MD ALB/MODL /[id number] cc: MD Dr. Curtis Chi Electronically Signed By: MOLLY NORIEGA MD 05/10/21 0824 PATIENT NAME: JOSEPH KOO CONSULTATION DATE OF : 52 REPORT #: [id number] PHYSICIAN: MOLLY NORIEGA MD PCP: Aayush LEACH DO REPORT IS CONFIDENTIAL AND NOT TO BE RELEASED WITHOUT AUTHORIZATION [address] [address] Signed Copies: MOLLY NORIEGA MD ~ Electronically Signed By: MOLLY NORIEGA MD 05/10/21 0824 PATIENT NAME: JOSEPH KOO CONSULTATION DATE OF : 52 REPORT #: [id number] PHYSICIAN: MOLLY NORIEGA MD PCP: Aayush LEACH DO REPORT IS CONFIDENTIAL AND NOT TO BE RELEASED WITHOUT AUTHORIZATION
--- NOTE | 2021-05-10 09:00 | NUR ---
REPORT RECEIVED FROM NIGHT RN AND PT. CARE RESUMED. PT. REPOSITIONED BY 2 STAFF PER REQUEST. PT. IS DROWSY AT TIMES BUT EASILY AWAKENS, PLEASANT AND ORIENTED TO ALL. HE DENIES PAIN. LEFT AC IV LEAKING AND DC'D WNL. PT. ABLE TO MOVE TOES SLIGHTLY AND HAS REGULAR STRENGTH IN HANDS. PT. ON HIS TRILOGY MACHINE AND INSTRUCTED TO NOTIFY STAFF BEFORE REMOVING FOR BREAKS. IV POTASSIUM INFUSING. ATTENDS DRY. PT. LEFT RESTING WITH CALL LIGHT IN REACH.
--- NOTE | 2021-05-10 13:48 | NUR ---
PT. ASSISTED BY 2 STAFF UP TO THE CHAIR VIA KALEB AND TOLERATED WELL. PLACED ON PULSE OX AND 2L NC AND TRIALED WITH EATING. PT. TOLERATING PUREED FOODS WELL, NO COUGHING AND 02 SAT REMAINED 97% OR GREATER. PT. REFUSED THICKENED LIQUIDS. THIS NURSE EXPLAINED THE RISKS OF ASPIRATION TO PT. AND . HE INSISTS ON REGULAR WATER. PT. LEFT RESTING WITH CALL LIGHT IN REACH AND PRESENT.
--- NOTE | 2021-05-10 19:35 | NUR ---
SHIFT REPORT RECEIVED FROM FRANCIS NERI. PT RESTING IN BED, IN ROOM. PT ON TRILOGY, SPO2 97% TELE HR SR @ 66. IV FLUIDS INFUSING PER ORDER. NO OTHER NEEDS. CALL LIGHT IN REACH.
--- NOTE | 2021-05-10 20:48 | NUR ---
Patient is trying to rest in bed. Call light is in reach. Vitals are complete.
--- NOTE | 2021-05-10 22:08 | NUR ---
ASSESSMENT COMPLETED. PT REPOSITIONED. PT REQUESTS TO USE NC FOR A SHORT TIME, 4L NC PROVIDED, SPO2 99%. PT ORIENTED TO PERSON. SPEECH SLURRED. PT WEAK IN ALL EXTREMITIES. BLE HAVE 2+ EDEMA AND DRY SKIN. LUNGS CLEAR IN UPPER LOBES AND DIM IN LOWER LOBES. ABD SOFT, NONTENDER, BOWEL TONES HYPOACTIVE. IV WNL, FLUSHED WELL, IV FLUIDS INFUSING PER ORDER. NO OTHER NEEDS AT THIS TIME. CALL LIGHT IN REACH, RAILS UP.
--- NOTE | 2021-05-10 23:00 | NUR ---
PT BRIEFS CHANGED. PT BACK ON TRILOGY. REPOSITIONED. IV WNL. CALL LIGHT IN REACH.
--- NOTE | 2021-05-11 | NUR ---
PT RESTING IN BED. TRILOGY ON, SPO2 98%. CALL LIGHT IN REACH.
--- NOTE | 2021-05-11 01:42 | NUR ---
PT CALLS TO HAVE A BREAK FROM THE TRILOGY. 4L NC PROVIDED. PT REPOSITIONED. NO OTHER NEEDS. CALL LIGHT IN REACH.
--- NOTE | 2021-05-11 02:37 | NUR ---
PATIENT REPOSITIONED. NO FURTHER NEEDS NOTED. CALL LIGHT IN REACH.
--- NOTE | 2021-05-11 02:42 | NUR ---
PT CALLS TO USE URINAL, PROVIDED. PT REPOSITIONED. ASSESSMENT COMPLETED. PT ORIENTED TO PERSON AND PLACE. GCS 15. LUNGS CLEAR IN UPPER LOBES, DIM IN LOWER LOBES. ABD FIRM, NONTENDER, BOWEL TONES ACTIVE. NC @ 4L. PT USING SPRAY BOTTLE TO MOISTEN MOUTH. IV FLUIDS INFUSING PER ORDER. NO OTHER NEEDS. CALL LIGHT IN REACH.
--- NOTE | 2021-05-11 04:15 | NUR ---
PT RESTING IN BED, EYES CLOSED. SPO2 95% ON TRILOGY. CALL LIGHT IN REACH.
--- NOTE | 2021-05-11 04:50 | NUR ---
PT CALLS TO BE REPOSITIONED, PROVIDED. PT SPO2 96 % ON 2L TRILOGY. VS AND I&O COMPLETED. NEW BAG OF IV FLUIDS PROVIDED. NO OTHER NEEDS. CALL LIGHT IN REACH.
--- NOTE | 2021-05-11 05:24 | NUR ---
PT CALLS TO BE BOOSTED UP IN BED AND REPOSITIONED, PROVIDED. PT ON 2L TRILOGY, SPO2 94%. NO OTHER NEEDS. CALL LIGHT IN REACH.
--- NOTE | 2021-05-11 07:39 | NUR ---
Shift report received from HALLE Sarmiento, pt resting safely w/ call light in reach and eyes closed. RR even and unlabored on 2L trilogy, Tele #3 cpox 96%.
--- NOTE | 2021-05-11 08:21 | NUR ---
PATIENT SITTING UP IN BED, REFUSED TO TRY AND EAT PUREED FOOD. VANILLA ENSURE GIVEN, PER PATIENT REQUEST, HE IS ALSO DRINKING MILK AND ORANGE JUICE.
--- NOTE | 2021-05-11 09:35 | NUR ---
Pt sitting up in bed drinking ensure, call light in reach. Morning assesment complete, no scheduled meds at this time, IV fluids infusing per provider order. Heel protectors removed per pt request, pt denies any oain, SOB, or further needs at this time.
--- NOTE | 2021-05-11 10:10 | NUR ---
PT SITTING UP IN BED WITH WHITEBOARD AND MUSIC. THERMOSTAT TURNED DOWN TO 72 PER PT REQUEST. CALL LIGHT WITHIN REACH NO FURTHER NEEDS AT THIS TIME.
--- NOTE | 2021-05-11 11:55 | NUR ---
PATIENT REFUSED LUNCH, AT BEDSIDE AND SAID TO PUT TRAY AWAY, THAT HE WOULD NOT EAT LUNCH.
--- NOTE | 2021-05-11 12:30 | NUR ---
Pt sitting up in bed w/ call light in reach, pt's at bedside, pt called for assistance w/ repositioning, this RN and HALLE Bai repositioned pt higher in the bed, pt switched from trilogy to 4L NC, O2 sats 97% per Tele #3 cpox. Pt denies any further needs at this time, IV fluids infusing per provider order.
--- NOTE | 2021-05-11 12:30 | NUR ---
PT FAMILY INSTRUCTED ON THE PROPER USE OF TRILOGY, PT FAMILY ALSO INSTRUCTED TO CALL [employer] FOR ADDITIONAL DISPOSABLE SUPPLIES NEEDED. TEACH BACK TEACHING METHOD USED WITH PT FAMILY MEMBER.
--- NOTE | 2021-05-11 14:00 | NUR ---
Pt sitting up in bed w/ call light in reach, at bedside. Pt denies any pain, SOB, or needs at this time.
--- NOTE | 2021-05-11 16:29 | NUR ---
Pt resting in bed safely w/ call light in reach and at bedside. Pt denies any needs at this time, O2 sats 93% on 2L via trilogy, per Tele #3 cpox.
--- NOTE | 2021-05-11 18:34 | NUR ---
Pt resting safely w/ call light in reach and eyes closed, RR even and unlabored, O2 sats 96% via Tele #3 cpox on trilogy. Update given to pt's daughter and .
--- NOTE | 2021-05-11 20:07 | NUR ---
incontinent ofurine, skinc are, clean attends, on room air, has trilogy machine at bedside, back on. sats 89% room air. repositioned in bed.
--- NOTE | 2021-05-11 22:09 | NUR ---
PATIENT CALLED. WANTING CPAP MASK OFF TO DRINK WATER. CPAP IS BACK ON. NO OTHER NEEDS AT THIS TIME.
--- NOTE | 2021-05-12 00:18 | NUR ---
WEARING TRILOGY MASK, SATS PER TELE#3 SR 96%, RESTING, EYES CLOSED, NO DISTRESS, EDEMA TO LE. ASPIRATION AND FALL PRECAUTIONS IN PLACE.
--- NOTE | 2021-05-12 00:30 | NUR ---
PATIENT CALLED STATING HE'S HAVING BOWEL MOVEMENT. THIS ELECTROMYOGRAPHIC TECHNICIAN AND PRIMARY RN GAVIN WENT INTO THE ROOM. CHECKED PATIENT, NO BOWEL MOVEMENT. PATIENT BOOSTED UP TO THE BED. PATIENT REFUSED TO HAVE PILLOWS ON HIS SIDES STATED " HE IS HOT". CALL LIGHT AND SIDE TABLE WITHIN REACH. CPAP IS BACK ON.
--- NOTE | 2021-05-12 01:46 | NUR ---
Using Trilogy, no distress, cpox #[address] sats 97%. P60. hob elevated. call light at hands reach
--- NOTE | 2021-05-12 02:30 | NUR ---
REPOSITIONED IN BED. WEARING CPAP, COOPERATIVE
--- NOTE | 2021-05-12 03:00 | NUR ---
USED URINAL, VOIDING QS
--- NOTE | 2021-05-12 03:26 | NUR ---
2 PA. CHANGED INCONTINENT ATTENDS WITH SMEAR BM. APPLIED BARRIER CREAM. PATIENT BOOSTED UP IN BED AND REPOSITIONED. CPAP BACK ON. CALL LIGHT AND SIDE TABLE IN REACH.
--- NOTE | 2021-05-12 05:22 | NUR ---
PT USES TRILOGY BIPAP MACHINE, TOLERATING WELL CPOX/TELE#3 SATS 96%, SINUS RHYTHM, NO SOB, NO CP. TALKS SOFTLY, WRITES NEEDS VIA WHITE BOARD AND NODS TO YES AND NO QUESTIONS. WEAKNESS OV ARMS AND LE, EDEMA , ELEVATED. IVF INFUSING W/O PROBLEMS, TAKES SIPS OF FLUIDS. DOES NOT LIKE THICKENED LIQUIDS. REPOSITIONED FREQUENTLY. IN BED. HAD SMEAR OF BM. USES URINAL, VOIDING SMALL AMOUNT QS URINE. USES CALL LIGHT.
--- NOTE | 2021-05-12 07:39 | NUR ---
PATIENT REPORT GIVEN TO THIS RN BY HALLE ALONSO. PATIENT DENIES PAIN AND HAD ME HELP HIM WITH THE URINAL WHILE I WAS AT BEDSIDE AND VOIDED 275MLS. HALLE ALONSO HELPED THIS RN REPOSITION AND PULL PATIENT UP IN BED. PATIENT DENIED ANY OTHER CARE NEEDS AT THIS TIME. CALL LIGHT IN REACH AND TRILOGY MACHINE REMAINS ON PATIENT.
--- NOTE | 2021-05-12 09:15 | NUR ---
CALLED [facility], SPOKE WITH CÉSAR YUSUF. [facility] WILL BE ABLE TO SUPPLY HOME SUCTION, PORTABLE SUCTION, ORAL CARE KITS AND A KALEB LIFT AT THIS TIME. DR. GONZALEZ UPDATED, WILL WRITE ORDERS AND FINISH DOCUMENTATION FOR PATIENT SUPPLIES.
--- NOTE | 2021-05-12 09:35 | NUR ---
PATIENT IS BACK ON HIS TRILOGY VENT.
--- NOTE | 2021-05-12 09:41 | NUR ---
PATIENT CALLED TO GET OFF BED BACA. THIS BLACKJACK PIT BOSS AND BLACKJACK PIT BOSS SONYA IN TO ASSIST PATIENT. KAITLYNN CARE DONE. NEW ATTENDS IN PLACE. PATIENT REPOSITIONED IN BED. VITALS AND I&O'S CHARTED. CALL LIGHT IN REACH. NO FURTHER NEEDS AT THIS TIME.
--- NOTE | 2021-05-12 10:44 | NUR ---
PATIENT RESTING IN BED WITH NO CURRENT CARE NEEDS. AWAITING SOME WORD FROM CASE MANAGEMENT ON HOME SUCTION SET UP. PATIENT HAS A FAMILY MEMBER IN THE ROOM WITH HIM. CALL LIGHT IS IN REACH.
--- NOTE | 2021-05-12 11:18 | NUR ---
DISCHARGE INSTRUCTIONS AND F/U APPOINTMENTS WENT OVER VERBALY WITH PATIENT AND . READ BACK INSTRUCTIONS AND PAPER COPY SENT HOME WITH PATIENT. AWAITING WORD FROM S TRANSPORT TO GET PATIENT BACK HOME. PATIENT'S SPOUSE ASKED IF THEY COULD GET A Rx FOR A VARIABLE PRESSURE MATTRESS AND INFORMED THIS TOGGLER IS WORKING ON IT. PATIENT AND SPOUSE INFORMED. CALL LIGHT IN REACH.
--- NOTE | 2021-05-12 12:30 | NUR ---
PATIENT'S VS ARE STABLE ON HIS TRILOGY IT PROJECT COORDINATOR FOR PORTABLE USE BY PATIENT'S . ANNETTA FIRE/BLS HERE TO TAKE PATIENT HOME. [facility] USED TO TRANSFER PATIENT TO [facility]. PATIENT'S HAS ALL APPOINTMENT AND DC INSTRUCTIONS, AND AN RX FROM . PATIENT AND SPOUSE HAD NO FURTHER QUESTIONS ON DEPARTURE.
== END 2021-05-12 12:30 | disposition home or self-care (01) | DRG 189 ==
LOC: ED 08:55 → MS 11:26
PROVIDERS: ADMIT Student in an Organized Health Care Education/Training Program; ATTEND Student in an Organized Health Care Education/Training Program
PROC: 5A09357 Assistance with Respiratory Ventilation, Less than 24 Consecutive Hours, Continuous Positive Airway Pressure (ICD-10-PCS; principal; 2021-05-07)
DX: J96.21 Acute and chronic respiratory failure with hypoxia (principal); G12.21 Amyotrophic lateral sclerosis; Z20.822 Contact with and (suspected) exposure to COVID-19; J96.22 Acute and chronic respiratory failure with hypercapnia; J96.02 Acute respiratory failure with hypercapnia; Z66 Do not resuscitate; R19.7 Diarrhea, unspecified; D69.6 Thrombocytopenia, unspecified; Z86.16 Personal history of COVID-19; E86.0 Dehydration; Z74.01 Bed confinement status; R13.12 Dysphagia, oropharyngeal phase; G62.9 Polyneuropathy, unspecified; Z88.5 Allergy status to narcotic agent; Z79.899 Other long term (current) drug therapy
CPT/HCPCS: 71045; 80048; 80503; 82803; 83605; 83735; 84100; 84132; 85025; 92610; 94660; 94760; 94761; 94762; 99285-25; C9803; J1650; J3480; J7040; J7060; J7121; U0003

== ENCOUNTER 2021-05-19 16:05 | Emergency (ER) | payer MEDICARE, OTHER ==
[~2021-05-19] VITALS: Ht 177.8 cm; Wt 82.5 kg
[~2021-05-19 16:05] MED LIST changes: +FUROSEMIDE20 MG PO; +POTASSIUM CHLO10 ME1 PO; +VITAMIN D21250 MCG PO
--- OUTSIDE RECORDS SUMMARY | 2021-05-19 16:12 | XMS ---
PreManage Notification: KERVIN KOO Security Vegetable Buncher Events No recent Security Events currently on file CRITERIA MET - [facility] - 2 Visits in 30 Days CARE PROVIDERS LILIAN Cosby JR Orthopaedic Surgery: Hand Surgery Current [facility] PHONE: [phone] [facility] has no Care Guidelines for this patient. [facility] VISIT COUNT (12 MO.) [address] [place] [address] TOTAL 3 NOTE: Visits indicate total known visits. ED/UCC VISIT TRACKING (12 MO.) 05/19/2021 16:05 [facility] TYPE: Emergency COMPLAINT: - WEAKNESS 05/07/2021 08:55 [facility] TYPE: Emergency COMPLAINT: - DIFFICULTY BREATHING 05/06/2021 18:10 [facility] TYPE: Emergency COMPLAINT: - DEHYDRATION DIAGNOSES: - Respiratory failure, unspecified with hypoxia - Allergy status to narcotic agent - Shortness of breath - Amyotrophic lateral sclerosis INPATIENT VISIT TRACKING (12 MO.) 05/07/2021 11:[address] [facility] TYPE: Medical Surgical COMPLAINT: - RESP FAILURE, HYPOXIA, ALS, WEAKNESS DIAGNOSES: - Other jail (current) drug therapy - Acute and chronic respiratory failure with hypercapnia - Acute and chronic respiratory failure with hypercapnia - Acute and chronic respiratory failure with hypoxia - Bed confinement status - Do not resuscitate - Amyotrophic lateral sclerosis - Diarrhea, unspecified - Dysphagia, oropharyngeal phase - Thrombocytopenia, unspecified - Bed confinement status - Thrombocytopenia, unspecified - Amyotrophic lateral sclerosis - Dysphagia, oropharyngeal phase - Polyneuropathy, unspecified - Amyotrophic lateral sclerosis - Dehydration - Allergy status to narcotic agent - Acute respiratory failure with hypercapnia - Dehydration - Other jail (current) drug therapy - Polyneuropathy, unspecified - Acute respiratory failure with hypercapnia - Do not resuscitate - Acute respiratory failure with hypoxia - Allergy status to narcotic agent [email or web address]
== END 2021-05-20 02:46 | disposition home or self-care (01) ==
LOC: ED 16:05
DX: G12.21 Amyotrophic lateral sclerosis (principal); E86.0 Dehydration; E87.6 Hypokalemia; Z20.822 Contact with and (suspected) exposure to COVID-19; Z88.5 Allergy status to narcotic agent
CPT/HCPCS: 36415; 80053; 82800; 83735; 84100; 85025; 94660; 96365; 96366; 99285-25; C9803; J3480; J7030; J7060; U0003